=== PATIENT | female | born 1950 | race Two or more races ===

== ENCOUNTER 2022-06-03 23:00 | Emergency (ER) | payer OTHER ==
[~2022-06-03] VITALS: Ht 165.1 cm; Wt 88.0 kg
[2022-06-03] MEDS ORDERED: FOLIC ACID20 MG (23:18)
[2022-06-03] MEDS ORDERED: ECOTRIN81 MG (23:19)
[2022-06-03] MEDS ORDERED: AVAPRO300 MG (23:19)
[2022-06-03] MEDS ORDERED: FARXIGA10 MG (23:19)
[2022-06-03] MEDS ORDERED: TOPROL XL50 M1 (23:19)
[2022-06-03] MEDS ORDERED: LIPITOR20 MG (23:20)
[2022-06-03] MEDS ORDERED: PEPCID AC20 MG (23:20)
[2022-06-03] MEDS ORDERED: AMLODIPINE-OLM1 EAC2 (23:20)
[2022-06-03] MEDS ORDERED: SINGULAIR10 MG (23:20)
== END 2022-06-04 04:13 ==
LOC: ER 23:00
DX: I10 Essential (primary) hypertension (principal); R07.89 Other chest pain; E11.9 Type 2 diabetes mellitus without complications; Z91.018 Allergy to other foods